=== PATIENT | male | born 2000 | race Caucasian/White ===

== ENCOUNTER 2019-11-16 01:40 | Emergency (ER) | payer OTHER ==
[2019-11-16] MEDS ORDERED: IBUPROFEN 800 MG TAB PO ONE (03:00)
[2019-11-16] MEDS ORDERED: AUGM500T34 PO (03:24)
[2019-11-16] MEDS ORDERED: AUGMENTIN 875 MG TAB PO ONE (03:30)
[2019-11-16 04:02] VITALS: BP 138/72
--- NOTE | 2019-12-15 11:12 | REP ---
LEFT HAND X-RAY: HISTORY: Foreign body. TECHNIQUE: AP and lateral views of the left hand. FINDINGS: No acute fracture or dislocation. Structures, joint spaces and surrounding soft tissues are normal. No subcutaneous emphysema or foreign body. IMPRESSION: No foreign body identified. MTDD
== END 2019-11-16 04:18 | disposition home or self-care (01) ==
LOC: M ED 01:40 → EDBD 01:40 → M ED 04:18
DX: S61.432A Puncture wound without foreign body of left hand, initial encounter (principal); W45.0XXA Nail entering through skin, initial encounter; Y92.019 Unspecified place in single-family (private) house as the place of occurrence of the external cause; F17.210 Nicotine dependence, cigarettes, uncomplicated